=== PATIENT | female | born 1965 | race Caucasian/White ===

== ENCOUNTER → 2018-07-06 | Outpatient (CLI) | payer BC ==
[~2018-07-06] MED LIST: LEVO25TA4 PO; MULT-642 PO
[2018-07-06 14:50] LABS: BASOPHILS # (AUTO) 0.02 x10^3/uL (0-0.1); BASOPHILS % (AUTO) 0 % (0-1); EOSINOPHILS # (AUTO) 0.07 x10^3/uL (0-0.4); EOSINOPHILS % (AUTO) 1 % (1-7); LYMPHOCYTES # (AUTO) 1.73 x10^3/uL (1-3.4); LYMPHOCYTES % (AUTO) 29 % (22-44); MD NO; MEAN CORPUSCULAR HEMOGLOBIN 30.1 pg (27.0-34.8); MEAN CORPUSCULAR HGB CONC 33.2 g/dL (32.4-35.8); MEAN CORPUSCULAR VOLUME 90.8 fL (80-100); MEAN PLATELET VOLUME 8.8 fL (7.4-10.4); MONOCYTES # (AUTO) 0.51 x10^3/uL (0.2-0.8); MONOCYTES % (AUTO) 8 % (2-9); NEUTROPHILS # (AUTO) 3.76 x10^3/uL (1.8-6.8); NEUTROPHILS % (AUTO) 62 % (42-75); PLATELET COUNT 259 x10^3/uL (130-400); RED CELL DISTRIBUTION WIDTH 13.1 % (9.6-15.2)
[2018-07-06 14:53] LABS: CULTURE INDICATED? YES; HCG UR SG 1.016 (1.003-1.030); MICROSCOPIC AUTO
== END | disposition home or self-care (01) ==
LOC: STAR 13:55
PROVIDERS: ATTEND Obstetrics & Gynecology
DX: Z01.818 Encounter for other preprocedural examination (principal); N39.3 Stress incontinence (female) (male); N81.10 Cystocele, unspecified; N81.6 Rectocele
CPT/HCPCS: 36415; 81001; 81025; 85025; 87086; 87147; 93005

== ENCOUNTER 2018-07-12 06:39 | Day surgery (SDC) | payer BC ==
[~2018-07-12] VITALS: Ht 180.3 cm; Wt 104.1 kg
[~2018-07-12 06:39] MED LIST changes: +BUPIVACAINE/PF 0.25% ONE; +THROMBIN 20,000 UNIT VIAL TP ONE; +VANCOMYCIN 500 MG ONE
[2018-07-12] MEDS ORDERED: ACETAMINOPHEN 500 MG TABLET PO ONE ×2 (07:00→07:30)
[2018-07-12] MEDS ORDERED: GABAPENTIN 300 MG CAPSULE PO ONE ×2 (07:00→07:30)
[2018-07-12] MEDS ORDERED: LACTATED RINGERS 1,000 ML IV SCH (07:05)
[2018-07-12] MEDS ORDERED: AMPI500C2 PO (07:07)
[2018-07-12] MEDS ORDERED: OxyconTIN ER 10 MG TAB.ER PO ONE (07:30)
[2018-07-12] MEDS ORDERED: FENTANYL PF 250 MCG/5ML ONE (08:44)
[2018-07-12] MEDS ORDERED: MIDAZOLAM 1 MG/ML, 2ML ONE (08:44)
[2018-07-12] MEDS ORDERED: SCOPOLAMINE PATCH, 1.5MG PATCH.TD72 TD ONE (09:23)
[2018-07-12] MEDS ORDERED: PROPOFOL 10 MG/ML, 20ML ONE (09:37)
[2018-07-12] MEDS ORDERED: SUCCINYLCHOLINE 20 MG/ML, 10ML ONE (09:37)
[2018-07-12] MEDS ORDERED: DEXAMETHASONE 4 MG/ML, 1ML ONE (09:37)
[2018-07-12] MEDS ORDERED: CEFAZOLIN 1,000 MG ONE (09:37)
[2018-07-12] MEDS ORDERED: ONDANSETRON 2MG/ML, 2ML ONE (09:37)
[2018-07-12] MEDS ORDERED: PROMETHAZINE 25 MG/ML, 1ML IV PRN (10:00)
[2018-07-12] MEDS ORDERED: HYDROmorphone 2 MG/ML, 1ML IVPush PRN (10:00)
[2018-07-12] MEDS ORDERED: FENTANYL PF 100 MCG/2ML IV PRN (10:00)
[2018-07-12] MEDS ORDERED: LABETALOL 5MG/ML, 20ML IV PRN (10:00)
[2018-07-12] MEDS ORDERED: OXYcodone 5 MG/5 ML ORAL.SOL UDC PO PRN (10:00)
[2018-07-12] MEDS ORDERED: hydrALAzine 20 MG/ML, 1ML IV PRN (10:00)
[2018-07-12] MEDS ORDERED: KETOROLAC 30 MG/1 ML IV PRN (10:00)
[2018-07-12] MEDS ORDERED: DIAZEPAM 5 MG/ML, 2ML IVPush PRN (10:00)
[2018-07-12] MEDS ORDERED: ACETAMINOPHEN 325 MG TABLET PO PRN (10:00)
[2018-07-12] MEDS ORDERED: MEPERIDINE/PF 25MG/0.5ML IVPush PRN (10:00)
[2018-07-12] MEDS ORDERED: ALBUTEROL SULFATE 2.5 MG/3 ML NPPB PRN (10:00)
[2018-07-12] MEDS ORDERED: NEOMY/POLYMYXIN B GU IRR. 1 ML ONE (10:06)
[2018-07-12] MEDS ORDERED: FLUORESCEIN SODIUM 500 MG/5 ML ONE (10:37)
[2018-07-12] MEDS ORDERED: PROMETHAZINE 25 MG/ML, 1ML ONE (12:14)
== END 2018-07-12 16:20 | disposition home or self-care (01) ==
LOC: OUT 06:39
PROVIDERS: ATTEND Obstetrics & Gynecology
DX: N39.3 Stress incontinence (female) (male) (principal); N81.89 Other female genital prolapse; N32.81 Overactive bladder; G43.909 Migraine, unspecified, not intractable, without status migrainosus; Z78.0 Asymptomatic menopausal state; Z98.890 Other specified postprocedural states
CPT/HCPCS: 36415; 57265; 57288; 84703; 85014; 85018; 86850; 86900; C1771; J0330; J0690; J1100; J2250; J2405; J2550; J2704; J3010; J7120; J3370; J3490

== ENCOUNTER 2019-11-11 08:00 | Outpatient (CLI) | payer BC ==
[~2019-11-11] VITALS: Ht 180.3 cm; Wt 104.5 kg
[~2019-11-11 08:00] MED LIST changes: +AMPI500C2 PO; -BUPIVACAINE/PF 0.25% ONE; -THROMBIN 20,000 UNIT VIAL TP ONE; -VANCOMYCIN 500 MG ONE
[2019-11-11 12:39] LABS: BASOPHILS # (AUTO) 0.02 x10^3/uL (0-0.1); BASOPHILS % (AUTO) 0 % (0-1); EOSINOPHILS # (AUTO) 0.05 x10^3/uL (0-0.4); EOSINOPHILS % (AUTO) 1 % (1-7); LYMPHOCYTES # (AUTO) 1.63 x10^3/uL (1-3.4); LYMPHOCYTES % (AUTO) 38 % (22-44); MD NO; MEAN CORPUSCULAR HEMOGLOBIN 30.5 pg (27.0-34.8); MEAN CORPUSCULAR HGB CONC 33.5 g/dL (32.4-35.8); MEAN CORPUSCULAR VOLUME 90.9 fL (80-100); MEAN PLATELET VOLUME 9.3 fL (7.4-10.4); MONOCYTES # (AUTO) 0.37 x10^3/uL (0.2-0.8); MONOCYTES % (AUTO) 9 % (2-9); NEUTROPHILS # (AUTO) 2.21 x10^3/uL (1.8-6.8); NEUTROPHILS % (AUTO) 52 % (42-75); PLATELET COUNT 240 x10^3/uL (130-400); RED CELL DISTRIBUTION WIDTH 12.8 % (9.6-15.2)
[2019-11-11 12:47] LABS: MICROSCOPIC NOT IND
== END 2019-11-11 23:59 | disposition home or self-care (01) ==
LOC: STAR 08:00 → EDSTATUS 11-14 07:30
PROVIDERS: ATTEND Obstetrics & Gynecology
DX: U07.1 COVID-19 (principal); Z01.818 Encounter for other preprocedural examination; Z20.828 Contact with and (suspected) exposure to other viral communicable diseases; R10.2 Pelvic and perineal pain; N18.2 Chronic kidney disease, stage 2 (mild)
CPT/HCPCS: 36415; 81003; 85025; 87635

== ENCOUNTER 2020-01-23 07:43 | Day surgery (SDC) | payer BC ==
[2020-01-20 17:11] LABS: BASOPHILS % (AUTO) 1 % (0-1); EOSINOPHILS % (AUTO) 1 % (1-7); LYMPHOCYTES % (AUTO) 25 % (22-44); MEAN CORPUSCULAR HEMOGLOBIN 29.9 pg (27.0-34.8); MEAN CORPUSCULAR HGB CONC 32.9 g/dL (32.4-35.8); MEAN PLATELET VOLUME 8.6 fL (7.4-10.4); MONOCYTES % (AUTO) 7 % (2-9); NEUTROPHILS % (AUTO) 67 % (42-75); PLATELET COUNT 266 x10^3/uL (130-400); RED BLOOD COUNT 5.09 x10^6/uL (3.82-5.3); RED CELL DISTRIBUTION WIDTH 12.9 % (9.6-15.2)
[2020-01-20 17:12] LABS: MD NO
[2020-01-20 17:19] LABS: MICROSCOPIC AUTO
[~2020-01-23] VITALS: Ht 180.3 cm; Wt 106.2 kg
[2020-01-23] MEDS ORDERED: MIDAZOLAM 1 MG/ML, 2ML ONE (08:25)
[2020-01-23 08:26] VITALS: BP 119/82
[2020-01-23] MEDS ORDERED: FENTANYL PF 250 MCG/5ML ONE (08:26)
[2020-01-23] MEDS ORDERED: LACTATED RINGERS 1,000 ML IV SCH (08:30)
[2020-01-23] MEDS ORDERED: FLUORESCEIN SODIUM 500 MG/5 ML ONE (08:46)
[2020-01-23] MEDS ORDERED: BUPIVACAINE/PF 0.25% ONE (08:46)
[2020-01-23] MEDS ORDERED: NEOMY/POLYMYXIN B GU IRR. 1 ML ONE (08:46)
[2020-01-23] MEDS ORDERED: EPINEPHRINE 1 MG/ML, 1ML ONE (08:48)
[2020-01-23 08:51] LABS: HCG UR SG 1.011 (1.003-1.030)
[2020-01-23] MEDS ORDERED: CHLORHEXIDINE 15 ML UDC MM ONE (09:00)
[2020-01-23] MEDS ORDERED: ACETAMINOPHEN 500 MG TABLET PO ONE (09:00)
[2020-01-23] MEDS ORDERED: OxyconTIN ER 10 MG TAB.ER PO ONE (09:00)
[2020-01-23] MEDS ORDERED: SCOPOLAMINE 1MG PATCH TD ONE (09:13)
[2020-01-23] MEDS ORDERED: SCOPOLAMINE 0.4 MG/ML ONE (09:27)
[2020-01-23] MEDS ORDERED: METHOCARBAMOL 1,000 MG in DEXTROSE 5% 100 ML IV PRN (10:00)
[2020-01-23] MEDS ORDERED: HYDROmorphone 1 MG/ML, 1ML INJ IVPush PRN (10:00)
[2020-01-23] MEDS ORDERED: LORazepam 2 MG/ML, 1ML IVPush PRN (10:00)
[2020-01-23] MEDS ORDERED: MEPERIDINE/PF 25MG/0.5ML IVPush PRN (10:00)
[2020-01-23] MEDS ORDERED: ALBUTEROL SULFATE 2.5 MG/3 ML NPPB PRN (10:00)
[2020-01-23] MEDS ORDERED: PROMETHAZINE 25 MG/ML, 1ML IVPush PRN (10:00)
[2020-01-23] MEDS ORDERED: hydrALAzine 20 MG/ML, 1ML IV PRN (10:00)
[2020-01-23] MEDS ORDERED: LABETALOL 5MG/ML, 20ML IV PRN (10:00)
[2020-01-23] MEDS ORDERED: ACETAMINOPHEN 325 MG TABLET PO PRN (10:00)
[2020-01-23] MEDS ORDERED: CEFAZOLIN 1,000 MG ONE (11:11)
[2020-01-23] MEDS ORDERED: DEXAMETHASONE 4 MG/ML, 1ML ONE (11:11)
[2020-01-23] MEDS ORDERED: ONDANSETRON 2MG/ML, 2ML ONE (11:11)
[2020-01-23] MEDS ORDERED: PROPOFOL 10 MG/ML, 20ML ONE (11:11)
[2020-01-23] MEDS ORDERED: LIDOCAINE-MPF 2% ,5ML ONE (11:29)
[2020-01-23] MEDS ORDERED: FENTANYL PF 100 MCG/2ML ONE (12:05)
[2020-01-23] MEDS ORDERED: OXYcodone 5 MG/5 ML ORAL.SOL UDC ONE (12:05)
[2020-01-23] MEDS: FENTANYL PF 100 MCG/2ML IV PRN ×2 (12:11→12:22)
[2020-01-23] MEDS: OXYcodone 5 MG/5 ML ORAL.SOL UDC PO PRN ×2 (12:26→16:04)
== END 2020-01-23 16:05 | disposition home or self-care (01) ==
LOC: OUT 07:43
PROVIDERS: ATTEND Obstetrics & Gynecology
DX: N81.89 Other female genital prolapse (principal); N81.4 Uterovaginal prolapse, unspecified; N94.10 Unspecified dyspareunia; I10 Essential (primary) hypertension; G43.909 Migraine, unspecified, not intractable, without status migrainosus; E03.9 Hypothyroidism, unspecified; Z72.89 Other problems related to lifestyle; Z20.828 Contact with and (suspected) exposure to other viral communicable diseases; Z79.899 Other long term (current) drug therapy; Z98.890 Other specified postprocedural states
CPT/HCPCS: 36415; 58263; 81001; 81025; 85014; 85018; 85025; 86850; 86900; 87086; 87635; 88307; J0171; J0690; J1100; J2250; J2405; J2704; J3010; J7120